=== PATIENT | male | born 1950 | race Caucasian/White ===

== ENCOUNTER 2021-04-06 14:05 | Outpatient (CLI) | payer BC | END 2021-04-06 14:06 | disposition home or self-care (01) | LOC: BICRAD 14:05 | PROVIDERS: ATTEND Podiatrist | DX: M72.2 Plantar fascial fibromatosis (principal); M79.671 Pain in right foot ==

== ENCOUNTER 2022-11-21 06:57 | Outpatient (CLI) | payer BC | END 2022-11-21 06:58 | disposition home or self-care (01) | LOC: MRI 06:57 | PROVIDERS: ATTEND Nurse Practitioner Family | DX: M47.22 Other spondylosis with radiculopathy, cervical region (principal); M48.02 Spinal stenosis, cervical region | CPT/HCPCS: 71045; 72141 ==